=== PATIENT | female | born 1950 | race Caucasian/White ===

== ENCOUNTER → 2024-09-08 08:54 | Outpatient (CLI) | payer MEDICARE, OTHER, SELFPAY | PROVIDERS: Visit Provider Surgery | DX: L98.8 Other specified disorders of the skin and subcutaneous tissue (principal); S81.801A Unspecified open wound, right lower leg, initial encounter; M10.9 Gout, unspecified; R73.03 Prediabetes; G89.4 Chronic pain syndrome | CPT/HCPCS: 11042; 87070; 87205; 99203; 99213 ==

== ENCOUNTER → 2024-09-15 08:56 | Outpatient (CLI) | payer MEDICARE, OTHER, SELFPAY | PROVIDERS: Referring Provider Family Medicine; Visit Provider Surgery | DX: L98.8 Other specified disorders of the skin and subcutaneous tissue (principal); S81.802A Unspecified open wound, left lower leg, initial encounter; M10.9 Gout, unspecified; R73.03 Prediabetes; G89.4 Chronic pain syndrome | CPT/HCPCS: 11042 ==

== ENCOUNTER → 2024-09-29 08:58 | Outpatient (CLI) | payer MEDICARE, OTHER, SELFPAY | PROVIDERS: Visit Provider Surgery | DX: L98.8 Other specified disorders of the skin and subcutaneous tissue (principal); S81.801A Unspecified open wound, right lower leg, initial encounter; M10.9 Gout, unspecified; R73.03 Prediabetes; G89.4 Chronic pain syndrome | CPT/HCPCS: 11042 ==

== ENCOUNTER → 2024-10-15 09:03 | Outpatient (CLI) | payer MEDICARE, OTHER, SELFPAY | PROVIDERS: Referring Provider Family Medicine; Visit Provider Surgery | DX: S81.801D Unspecified open wound, right lower leg, subsequent encounter (principal); M10.9 Gout, unspecified | CPT/HCPCS: 99213 ==